=== PATIENT | female | born 2005 | race Two or more races ===

== ENCOUNTER 2024-09-11 20:08 | Observation (INO) | payer MEDICAID, SELFPAY ==
[2024-09-11] VITALS (18 sets, daily range): BP systolic 106–132; BP diastolic 51–67; PULSE 70–129; RESP 18–99; TEMP 37; O2SAT 98–100; BMI 45.7
[2024-09-11 21:04] LABS: ROM Kit Lot # 578010271; ROM Swab Mixed By: CARMP2; Rupture of Fetal Membranes Negative (Negative); Swb Mxed in Solvent 1 min? Yes
[2024-09-11 21:56] LABS: Collection Type, Urine Clean Catch
[2024-09-11 21:59] LABS: Bilirubin,Urine Negative (Negative); Blood,Urine Negative (Negative); Clarity,Urine Clear (Clear/Hazy); Color,Urine Lt-Yellow (Lt Yel-Yel); Glucose, Urine Negative (Negative); Ketones,Urine Negative (Negative); Leukocyte Esterase,Urine Positive (Negative); Nitrite,Urine Negative (Negative); Protein,Urine Negative (Neg - Trace); RBC,Urine 2 /hpf (0-3); Squamous Epithelial Cell,Urine 5 /hpf (0-5); Urobilinogen,Urine Negative mg/dL (0.0-1.0); WBC,Urine 7 /hpf (0-5)
[2024-09-11 22:15] LABS: Alanine Aminotransferase 15 U/L (10-49); Albumin, Serum 3.6 gm/dL (3.5-5.0); Albumin/Globulin Ratio 1.5 (1.2-2.2); Alkaline Phosphatase 79 U/L (46-116); Anion Gap 9 (7-16); Aspartate Amino Transferase 29 U/L (0-34); BUN/Creatinine Ratio 15 Ratio (12-20); Bilirubin,Total 0.2 mg/dL (0.3-1.2); Blood Urea Nitrogen 9 mg/dL (9-23); Calcium 9.3 mg/dL (8.3-10.6); Calcium (Corrected) 9.6 mg/dL (8.5-10.1); Carbon Dioxide 24.3 mMol/L (20.0-31.0); Chloride 106 mMol/L (98-107); Creatinine (Component) 0.6 mg/dL (0.6-1.3); Estimated Creatinine Clearance 184.8 mL/min (>60); Globulin 2.4 gm/dL (2.3-3.5); Glucose 80 mg/dL (74-106); Osmolality,Calculated 275 (275-295); Potassium 4.5 mMol/L (3.4-5.1); Sodium 139 mMol/L (136-145); eGFR > 60 See Note
--- NOTE | 2024-09-11 22:54 | XR_ITS ---
Examination: Biophysical profile, ultrasound Date and time of exam: September 12, 2024 0027 hours INDICATIONS: Vaginal bleeding beginning 2 weeks ago, history left ovarian carcinoma Technique: Multiple transabdominal sonographic images of the pelvis abdomen obtained. Attention is directed to the breathing movement, gross body movement, amniotic fluid volume and tone. Findings: Amniotic fluid index 15.1 cm Total biophysical profile is 8 of 8. breathing movement is 2. Gross body movement is 2. tone is 2. Qualitative amniotic fluid volume is 2 Impression: Biophysical profile is 8 of 8.
--- NOTE | 2024-09-11 22:58 | XR_ITS ---
Examination: Complete OB ultrasound greater than 14 weeks Date and time of exam: September 11, 2024 11:56 PM INDICATIONS: Onset pelvic pain today Findings: Viable intrauterine single fetus with single amniotic sac presentation cephalic Cardiac motion 155 BPM Placenta anterior grade 1 Umbilical cord insertion seen Amniotic fluid index 15.6 cm Right ovary 3.5 cm arterial flow Absent left ovary. Composite estimated gestational age based on BPD, head circumference, abdominal circumference, femur length is 37 weeks 3 days Estimated weight 3151 g. Survey of intracranial anatomy, spinal anatomy, abdominal anatomy, four-chamber heart performed with no abnormalities identified. Impression: Viable intrauterine gestation cephalic presentation.
[2024-09-11 23:28] LABS: Basophils % (Auto) 0 % (0-2.5); Eosinophils # (Auto) 0.1 Thou/mm3 (0.0-0.5); Eosinophils % (Auto) 1 % (0-10); Hematocrit 32.9 % (36.0-46.0); Hemoglobin 11.6 g/dL (12.0-16.0); Immature Granulocytes % (Auto) 1 % (0-0); Lymphocytes # (Auto) 1.4 Thou/mm3 (1.0-4.8); Lymphocytes % (Auto) 17 % (10-50); Mean Corpuscular HGB Conc 35.3 g/dl (31.0-37.0); Mean Corpuscular Hemoglobin 31.6 pg (25.0-35.0); Mean Corpuscular Volume 90 fL (80-100); Monocytes # (Auto) 0.8 Thou/mm3 (0.0-0.8); Monocytes % (Auto) 10 % (0-12); Neutrophils % (Auto) 71 % (37-80); Nucleated Red Blood Cell % 0 /100 WBC (0); Platelet Count 197 Thou/mm3 (140-440); RDW Standard Deviation 43.7 fL (36.4-46.3); Red Blood Count 3.67 Miln/mm3 (4.00-5.20); White Blood Count 8.5 Thou/mm3 (4.5-11.0)
[2024-09-12] VITALS (13 sets, daily range): BP systolic 103–148; BP diastolic 54–86; PULSE 67–91; RESP 16–18; TEMP 36.6–36.9
[2024-09-12] MEDS: ceFAZolin/D5W 2 GM IV 2 GM/100 ML BAG IV (00:10)
--- NOTE | 2024-09-12 00:22 | PD.LDHP ---
Documentation for date of: 09/12/24 OB Labor/Induct. HPI History of Present Illness History of present illness: 19-year-old 2 para 0-0-1-0 at 36 weeks and 2 days is admitted for overnight observation. Patient presented to the ER with concerns of burning urination, lower abdominal pain, back pain and leaking with spotting. Patient states her symptoms has been there for 2 to 3 days. Pain is mostly in the lower back near her hip joint also radiates to the left thigh. History of Present Dating criteria: LMP confirmed by 1st trimester US Adequate Care: Yes Meds Home Medications and Allergies Home Medications ?Medication ?Instructions ?Recorded ?Confirmed ?Type vits no.130-ferrous fum 1 tab PO QDAY 09/11/24 09/11/24 History 27 mg iron-folic acid 800 mcg tablet ( Vitamin) Allergies Allergy/AdvReac Type Severity Reaction Status Date / Time NKA* Allergy Uncoded 09/11/24 23:11 OB Exam Physical Exam Vital signs: Temp Pulse Resp BP Pulse Ox 98.6 F 72 18 106/59 L 99 09/11/24 22:10 09/11/24 21:59 09/11/24 20:27 09/11/24 21:59 09/11/24 22:08 Constitutional Constitutional: no acute distress Routine HEENT Exam Head: Present normocephalic and atraumatic Eye: Present EOMI and PERRL ENT: Present mucous membranes moist Routine Neck Exam Neck: Present supple and trachea midline Routine Cardiovascular Exam Cardiovascular: Present RRR Routine Abdominal Exam Abdominal: Present soft and normoactive bowel sounds Routine Exam Comments: Negative CVA tenderness Detailed Labor and Delivery Exam Comments: Cervix is 1 thick high Isolated occasional prolonged deceleration 3 minutes seen resolved on position change Routine Extremities Exam Extremities: Present full ROM Routine Skin Exam Skin: Present intact, dry and warm Routine Neurological Exam Neurological: Present alert, oriented X3 and CN II-XII intact Routine Psychiatric Exam Psychiatric: Present normal affect and normal thought process OB Results Labs 09/11/24 22:09 09/11/24 21:25 Labs: Short CBC 09/11/24 Range/Units 22:09 WBC 8.5 (4.5-11.0) Thou/mm3 Hgb 11.6 L (12.0-16.0) g/dL Hct 32.9 L (36.0-46.0) % Plt Count 197 (140-440) Thou/mm3 BMP 09/11/24 21:25 Sodium 139 Potassium 4.5 Chloride 106 Carbon Dioxide 24.3 BUN 9 Creatinine 0.6 Glucose 80 Calcium 9.3 Liver Function 09/11/24 Range/Units 21:25 Total Bilirubin 0.2 L (0.3-1.2) mg/dL AST 29 (0-34) U/L ALT 15 (10-49) U/L Alkaline Phosphatase 79 (46-116) U/L Albumin 3.6 (3.5-5.0) gm/dL Urine 09/11/24 Range/Units 21:00 Urine Color Lt-Yellow (Lt Yel-Yel) Urine Clarity Clear (Clear/Hazy) Urine pH 6.0 (5.0-7.0) Ur Specific [place] 1.020 (1.001-1.035) Urine Protein Negative (Neg - Trace) Urine Glucose (UA) Negative (Negative) Impressions Impression: 19-year-old 2 para 0-0-1-0 at 36 weeks and 2 days admitted for observation secondary to category 2 heart tone. On arrival in the triage patient had a prolonged deceleration of 3 minutes Possible UTI: Urine analysis within normal limits WBC normal Ultrasound pending Not in labor CVA tenderness negative Appears musculoskeletal origin of back pain OB Assessment & Plan Additional Plan Additional Plan Comment: Will be admitted for overnight observation with continuous heart tone monitoring Ultrasound complete OB along with BPP 1 dose of antibiotic given pending urine culture
[2024-09-12] MEDS: BETAMET ACET/BETAMET NA PH (Celestone) 6 MG/ML VIAL 12 MG IM (00:45)
--- NOTE | 2024-09-12 02:39 | PRELIM_ITS ---
Obstetric ultrasound with doppler and wave doppler spectral analysis. September 11, 2024 2356 hours Clinical history: Category II tracing. Comparison: None available at the time of this report. Findings: There is a gravid uterus with a live fetus in cephalic presentation of mean gestational age 37 weeks and 3 days (by biometry). cardiac activity is present at a heart rate of 155 beats per minute. The placenta is anterior in location, maturity grade 1. There is no evidence of placenta previa or retroplacental hemorrhage. Amniotic fluid is adequate (TATIANA = 15.6 cm). Estimated weight is 3151 grams+/- 466 grams. The right ovary measures 3.2 x 2.4 x 3.5 cm. Normal blood flow in the right ovary with normal wave Doppler spectral analysis. S/p left oophorectomy. The cervix is not clearly visualized. Impression: Gravid uterus with a single live fetus in cephalic presentation of mean gestational age 37 weeks and 3 days. Report Electronically Signed By: Aric Sherwood 09/12/2024 2:38:58 AM [EST]
--- NOTE | 2024-09-12 02:40 | PRELIM_ITS ---
Obstetric ultrasound (limited) with Doppler. September 12, 2024 0027 hours Clinical history: Category II tracing. Comparison: None available at the time of this report. Findings: There is a gravid uterus with a live fetus. cardiac activity is present at a heart rate of 152 beats per minute. There is no evidence of placenta previa or retroplacental hemorrhage. Amniotic fluid is adequate (TATIANA = 15.1 cm). No abnormalities by Doppler. Biophysical Profile: Breathing : 2 Tone : 2 Amniotic fluid : 2 Movement : 2 BPP Score : 8/8 Impression: Gravid uterus with a single live fetus. Normal biophysical profile as recorded by the apparatus engineering technologist. Report Electronically Signed By: Aric Sherwood 09/12/2024 2:39:13 AM [EST]
--- NOTE | 2024-09-12 20:03 | PD.LDDS ---
DS: Providers Provider Date of admission: 09/11/24 20:08 Primary care physician: Physician No Primary/Family Admitting Provider: Messi Ceballos MD Attending Provider on Admission: Messi Ceballos MD Attending Provider on DC: [facility] ([facility]) Discharging Provider: Sheela Garcia MD ([facility]) Anticipated date of discharge: 09/12/24 DS: Diagnosis Discharge Diagnosis (1) 36 weeks gestation of : Status: Acute Assessment & Plan: Patient was given 1 dose of betamethasone on admission. No need for second dose as she is over 36 weeks in does not appear to be in labor. (2) Pelvic pain: Status: Acute Assessment & Plan: No signs of ongoing labor. No signs of kidney and kidney or pelvic infection. No signs of rupture membranes. After observation, a normal evaluation and normal lab work, we will send home in stable condition. Patient with a reactive NST, and normal BPP and an ultrasound revealing a vertex presentation baby measuring a week of head and a TATIANA of over 15 Problem List Completed Was Problem List Reviewed/Reconciled?: Yes Summary/Hosp Course Brief History: 19-year-old 2 para 0-0-1-0 at 36 weeks and 2 days is admitted for overnight observation. Patient presented to the ER with concerns of burning urination, lower abdominal pain, back pain and leaking with spotting. Patient states her symptoms has been there for 2 to 3 days. Pain is mostly in the lower back near her hip joint also radiates to the left thigh. Status at Discharge Cognitive/behavioral status at discharge: Patient is alert and oriented x 3 she feels better and wants to go home. Functional status at discharge: independent ambulation Overall status at discharge: patient is back to baseline Time Spent with Patient Time attestation: Total time spent providing and/or coordinating discharge services: Time spent: Less than 30 minutes Specific discharge activities: Take warm baths. Heating pad on your back for pelvic pain. Tylenol is okay. Explained that the next 4 weeks are likely going to entail some cramping pain urinary frequency and pressure. This is all a normal process as patient progresses through the last 4 weeks of . She is to come in for heavy vaginal, bleeding loss of fluids, decreased movement or painful regular uterine contractions. She is to follow-up with her CNM in 1 week. Exam Vital Signs Temp Pulse Resp BP Pulse Ox 97.8 F 75 18 118/69 99 09/12/24 07:21 09/12/24 07:20 09/12/24 07:21 09/12/24 07:20 09/11/24 22:08 Discharge Plan Plan Patient Disposition: HOME (Self Care) Disposition Comment: Stable Prescriptions/Referrals Prescriptions/Med Rec: No Action Vitamin 27 mg iron- 800 mcg tablet 1 tab PO QDAY Referrals: No Primary/Family,Physician [Primary Care Provider] - Patient/Caregiver Discharge Instructions Discharge Activity: activity as tolerated Other Discharge Activity Instructions:: follow up with CNM at clinic. Other Discharge Diet Instructions: General diet Education Materials: Kick Counts, Understanding Labor, Antepartum Discharge Print Language: Kiswahili Stand Alone Forms: Sobeida Award Info., Patient Portal Info Letter, Work/Release Restrictions Discharge Order Discharge Orders: Discharge (Routine); Ordered 09/12/24 Ordered By: Sheela Garcia ([facility]) Planned Discharge Date 09/12/24
== END 2024-09-12 08:00 | disposition home or self-care (01) ==
PROVIDERS: Admitting Provider Student in an Organized Health Care Education/Training Program; Visit Provider Student in an Organized Health Care Education/Training Program
DX: O26.893 Other specified pregnancy related conditions, third trimester (principal); R10.2 Pelvic and perineal pain; Z3A.37 37 weeks gestation of pregnancy; M54.50 Low back pain, unspecified
CPT/HCPCS: 36415; 59025; 59899; 76805; 76819; 80053; 81001; 84112; 85025; 87086; 96372; G0378; J0689; J0702

== ENCOUNTER 2024-09-17 17:41 | Outpatient (CLI) | payer BC, MEDICAID, SELFPAY ==
[2024-09-17] VITALS (22 sets, daily range): BP systolic 126–137; BP diastolic 70–78; PULSE 78–109; RESP 18–98; TEMP 36.7; O2SAT 93–100; BMI 45.8
--- NOTE | 2024-09-17 18:20 | XR_ITS ---
Examination: Biophysical profile, ultrasound Date and time of exam: September 17, 2024 1831 hours INDICATIONS: Diagnosis maternal obesity, vaginal bleeding and discharge beginning 2 days ago Technique: Multiple transabdominal sonographic images of the pelvis abdomen obtained. Attention is directed to the breathing movement, gross body movement, amniotic fluid volume and tone. Findings: Amniotic fluid index 11.7 cm Total biophysical profile is 8 of 8. breathing movement is 2. Gross body movement is 2. tone is 2. Qualitative amniotic fluid volume is 2 Impression: Biophysical profile is 8 of 8.
== END 2024-09-17 19:51 | disposition home or self-care (01) ==
LOC: S4SX 19:43 → S4S1 09-18 06:05 → S4SX 09-18 06:05
PROVIDERS: Referring Provider Obstetrics & Gynecology; Visit Provider Obstetrics & Gynecology
DX: Z34.83 Encounter for supervision of other normal pregnancy, third trimester (principal); Z36.9 Encounter for antenatal screening, unspecified; Z3A.37 37 weeks gestation of pregnancy
CPT/HCPCS: 59025; 76819

== ENCOUNTER 2024-09-26 15:18 | Observation (INO) | payer BC, MEDICAID, SELFPAY ==
[2024-09-26 15:26] VITALS: BP 128/76; PULSE 108
[2024-09-26 15:36] VITALS: BP 128/76; PULSE 108; RESP 16; RESP 97; TEMP 36.7
[2024-09-26 15:37] VITALS: RESP 16; TEMP 36.7; O2SAT 97; BMI 46.7
[2024-09-26 16:11] LABS: ROM Kit Lot # 57807112; ROM Swab Mixed By: HILEL; Rupture of Fetal Membranes Negative (Negative); Swb Mxed in Solvent 1 min? Yes
== END 2024-09-26 16:30 | disposition home or self-care (01) ==
PROVIDERS: Admitting Provider Obstetrics & Gynecology; Visit Provider Obstetrics & Gynecology
DX: Z34.83 Encounter for supervision of other normal pregnancy, third trimester (principal); Z3A.38 38 weeks gestation of pregnancy
CPT/HCPCS: 59899; 84112

== ENCOUNTER 2024-09-28 05:22 | Inpatient (IN) | payer BC, MEDICAID, SELFPAY ==
[2024-09-28] VITALS (251 sets, daily range): BP systolic 0–167; BP diastolic 0–95; PULSE 68–127; RESP 16–98; TEMP 36.5–37.2; O2SAT 70–100; BMI 47.1
[2024-09-28 05:55] LABS: ROM Kit Lot # 57807112; ROM Swab Mixed By: KE; Rupture of Fetal Membranes Positive (Negative); Swb Mxed in Solvent 1 min? Yes
[2024-09-28] MEDS: RINGERS LACTATED 1000 ML 1,000 ML 100 ML IV (06:20)
[2024-09-28 06:39] LABS: Basophils % (Auto) 0 % (0-2.5); Eosinophils # (Auto) 0.1 Thou/mm3 (0.0-0.5); Eosinophils % (Auto) 2 % (0-10); Hematocrit 33.7 % (36.0-46.0); Hemoglobin 11.9 g/dL (12.0-16.0); Immature Granulocytes % (Auto) 1 % (0-0); Immature Granulocytes Auto 0.08 Thou/mm3 (0.00-0.00); Lymphocytes # (Auto) 1.5 Thou/mm3 (1.0-4.8); Lymphocytes % (Auto) 17 % (10-50); Mean Corpuscular HGB Conc 35.3 g/dl (31.0-37.0); Mean Corpuscular Hemoglobin 31.8 pg (25.0-35.0); Mean Corpuscular Volume 90 fL (80-100); Monocytes # (Auto) 0.8 Thou/mm3 (0.0-0.8); Monocytes % (Auto) 9 % (0-12); Neutrophils # (Auto) 6.3 Thou/mm3 (1.8-7.7); Neutrophils % (Auto) 71 % (37-80); Nucleated Red Blood Cell % 0 /100 WBC (0); Platelet Count 195 Thou/mm3 (140-440); RDW Standard Deviation 44.1 fL (36.4-46.3); Red Blood Count 3.74 Miln/mm3 (4.00-5.20); White Blood Count 8.9 Thou/mm3 (4.5-11.0)
[2024-09-28 07:15] LABS: Syphilis Nonreactive (Nonreactive)
--- NOTE | 2024-09-28 07:45 | ESHP_ITS ---
Documentation for date of: 09/28/24 OB Labor/Induct. HPI History of Present Illness Chief complaint: Ruptured membranes at 520 in the morning : 2 Term pregnancies: 0 Living children: 0 History of Abortions: Spontaneous and Elective: 1 History of Vaginal deliveries: 0 History of sections: No History of : No Date of last menstrual period: 12/09/23 JANIE: 10/08/24 Gestational Age (weeks): 38 Gestational Age (days): 4 Gestational age based on last menstrual period: 42 History of present illness: The patient is a 19-year-old -0-1-0 who presented with ruptured membranes at 5:20 in the morning. The patient was 2 cm dilated on presentation. She is 38-4/7 weeks . She was a scheduled induction for elevated maternal BMI close to her due date. Her care is up-to-date and on the chart with [facility]. Group B strep is negative. The patient desires to try to labor naturally. The father the baby is at the bedside and plans on going home and bringing back a labor ball for the patient. History of Present Dating criteria: LMP confirmed by 1st trimester US Adequate Care: Yes Ultrasounds: normal mid trimester US Medical complications: other (Maternal BMI of 47) Labs Maternal Blood Type: O Pos Labs: Positive: Rubella Titre and Negative: RPR, Hepatitis B, HIV, Chlamydia, Gonorrhea and Group Beta Strep Review of Systems Review of Systems Systems Reviewed: All systems reviewed, normal except as documented Narrative Review of Systems: The patient reports ruptured membranes. Clear fluid. No meconium. The patient is breathing through contractions and reports good movement. 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 She did have a blood transfusion during the surgery. Social History SOCIAL: The father of the baby is at bedside. Past Medical History Comments PMH COMMENT: Patient has a history of anxiety Meds Home Medications and Allergies Home Medications ?Medication ?Instructions ?Recorded ?Confirmed ?Type vits no.130-ferrous fum 1 tab PO QDAY 09/11/2 5 09/28/24 History 27 mg iron-folic acid 800 mcg tablet ( Vitamin) acetaminophen 500 mg tablet 1,000 mg PO [id number] PRN pa in 09/28/24 09/28/24 History Allergies Allergy/AdvReac Type Severity Reaction Status Date / Time NKA* Allergy Uncoded 09/28/24 06:34 OB Exam Physical Exam Vital signs: Temp Pulse Resp BP Pulse Ox 97.7 F 98 18 128/77 98 09/28/24 05:36 09/28/24 05:32 09/28/24 05:26 09/28/24 05:32 09/28/24 06:03 Routine Abdominal Exam Abdominal: Present soft Comments: Obese. Fundal height of approximately 40. Detailed Labor and Delivery Exam Effacement (%): 50 Cervix position: mid station: -2 Consistency: medium Presentation: Vertex Membranes: ruptured Amniotic fluid: clear monitor accelerations: 15x15 monitor decelerations: None exterminator helper variability: Moderate (11-25) Contraction frequency (min): Irregular Tachysystole: No OB Results Labs 09/28/24 06:15 Labs: Short CBC 09/28/24 Range/Units 06:15 WBC 8.9 (4.5-11.0) Thou/mm3 Hgb 11.9 L (12.0-16.0) g/dL Hct 33.7 L (36.0-46.0) % Plt Count 195 (140-440) Thou/mm3 OB Assessment & Plan Assessment and Plan (1) Active labor at term: Status: Acute Assessment and plan: Admit patient. Pain options discussed including epidural and IV fentanyl. (2) Morbid obesity with BMI of 45.0-49.9, adult: Status: Acute Assessment and plan: Shoulder precautions. EFW based on ultrasound 09/11 was 7 pounds. So anticipate an 8 pound baby. Additional Plan Induction method: none Plan: anticipate NVD Additional Plan Comment: Consider Pitocin augmentation if patient not progressing.
--- NOTE | 2024-09-28 08:45 | PD.LDPN ---
Documentation for date of: 09/28/24 OB Labor Progress Note Pain Control Comments: Patient passed out on the restroom toilet and a rapid response was called at 840 in the morning. Before I could come to bedside and assess the patient. Pelvic Exam Effacement (%): 50 station: -2 Contractions Contraction frequency: Irregular Status status: Category ll
--- NOTE | 2024-09-28 14:59 | PD.LDPN ---
Documentation for date of: 09/28/24 OB Labor Progress Note Pain Control Pain control: epidural Pelvic Exam Dilation (cm): 5 Effacement (%): 80 station: -2 Amniotic membrane status: Ruptured Contractions Monitor mode: Internal Contraction frequency: evry 4 Contraction duration: 30 Intrauterine tone measurement: 110 Status status: Category l Assessment and Plan Assessment: active labor Plan OB labor note: begin Pitocin augmentation Comments: IUPC in place. Contractions are not adequate for cervical change. Start Pitocin at this time.
[2024-09-28] MEDS: ONDANSETRON INJ 2 MG/ML INJ 2 ML 4 MG IV (17:36)
[2024-09-28] MEDS: MINERAL OIL 30 ML UDC TOP (20:50)
[2024-09-28] MEDS: OXYTOCIN in NS 20 units 20 UNIT/1,000 ML BAG 125 UNIT IV (21:06)
--- NOTE | 2024-09-28 21:23 | PD.LDDELS ---
Data ([facility]) Data Hx Section: No Maternal Blood Type: O Pos Rubella Titre: Positive RPR: Non-reactive Labs: Negative: RPR, Hepatitis B, HIV, Chlamydia, Gonorrhea and Group Beta Strep : 2 Term: 0 : 0 : 1 Delivery Data ([facility]) Labor Data Stimulated/Augmented: No Induction: No ROM Date: 09/28/24 ROM Time: 04:20 Rupture Type: SROM Amniotic Fluid: Clear Delivery Data EDC: 10/08/24 EDC calculated by:: LMP/early US confirmation Delivery Date: 09/28/24 Delivery Time: 21:02 Gestational age (weeks): 38 Gestational age (days): 4 Placenta Delivery Date: 09/28/24 Placenta Delivery Time: 21:04 Delivered by: Sheela Garcia ([facility]) Automotive Services Manager at delivery: No Support person(s) at delivery: FOB, pt mother Delivery Method Delivery: Vaginal Delivery Type: Spontaneous Presentation: Vertex Position: OA Anesthesia Type Primary Anesthesia: Epidural Secondary Anesthesia: None Delivery Room Medications Other Intrapartum Medications: No Post Delivery Medications N/A: No Placenta Placenta Delivery: Spontaneous Placenta Cultures Obtained: No Placenta Sent for Examination: No Cord Sample: Cord Blood Obtained Episiotomy Episiotomy: None Lacerations #1: Perineal: 1st degree Perineal repair Sutures used for repair: 4.0 Chromic EBL Estimated blood loss (ml): 100 Umbilical Cord Placenta/Cord Complication: Other (Short cord) Umbilical Vessels: 3 Nuchal Cord: None Body Cord: None Additional Procedures Patient progressed to complete without the aid of Pitocin and labored down about an hour. She then began pushing about 8:00 PM and pushed approximately 1 hour delivering a liveborn male at 9:02 pm. Findings liveborn male in the ROSALIND presentation with no nuchal cord and no meconium. Apgars were 9 and 9. Weight was 7 pounds 3 ounces. The placenta was complete spontaneous grossly normal delivering approximately 4 minutes after the baby delivered. The patient sustained a first-degree perineal laceration repaired using 4-0 chromic. The patient had an epidural. EBL was 100 cc. Complications were none. Condition both mom and infant were in stable condition in the delivery room. Complications Complications: none Data ([facility]) Data [place]'s name: Tip order: 1 Infant Gender: Male weight (lbs): 3260.195 g
--- NOTE | 2024-09-28 21:30 | PD.LDDELS ---
Data ([facility]) Data Hx Section: No Maternal Blood Type: O Pos Rubella Titre: Positive RPR: Non-reactive Labs: Negative: RPR, Hepatitis B, HIV, Chlamydia, Gonorrhea and Group Beta Strep : 2 Term: 0 : 0 : 1 Delivery Data ([facility]) Labor Data Stimulated/Augmented: No Induction: No ROM Date: 09/28/24 ROM Time: 04:20 Rupture Type: SROM Amniotic Fluid: Clear Delivery Data Delivery Date: 09/28/24 Delivered by: Sheela [facility] ([facility]) Field Marketing Manager at delivery: No Support person(s) at delivery: FOB, pt mother Delivery Method Delivery: Vaginal Delivery Type: Spontaneous Presentation: Vertex Position: OA Anesthesia Type Primary Anesthesia: Epidural Secondary Anesthesia: None Delivery Room Medications Other Intrapartum Medications: No Placenta Placenta Delivery: Spontaneous Placenta Cultures Obtained: No Placenta Sent for Examination: No
[2024-09-28] MEDS: IBUPROFEN TAB 400 MG TABLET 800 MG PO (22:00)
[2024-09-28] MEDS: BENZO/LANO/ALOE (Dermoplast) 60 GM CAN 1 SPRAY TOP (22:04)
[2024-09-29] MEDS: IBUPROFEN TAB 400 MG TABLET 800 MG PO ×3 (01:36→20:08)
[2024-09-29 03:30] VITALS: BP 102/68; PULSE 104; RESP 20; TEMP 36.4; O2SAT 97
[2024-09-29 05:26] LABS: Basophils % (Auto) 0 % (0-2.5); Eosinophils % (Auto) 0 % (0-10); Hematocrit 30.2 % (36.0-46.0); Hemoglobin 10.3 g/dL (12.0-16.0); Immature Granulocytes % (Auto) 1 % (0-0); Lymphocytes # (Auto) 1.3 Thou/mm3 (1.0-4.8); Lymphocytes % (Auto) 7 % (10-50); Mean Corpuscular HGB Conc 34.1 g/dl (31.0-37.0); Mean Corpuscular Hemoglobin 31.3 pg (25.0-35.0); Mean Corpuscular Volume 92 fL (80-100); Monocytes # (Auto) 1.1 Thou/mm3 (0.0-0.8); Monocytes % (Auto) 6 % (0-12); Neutrophils # (Auto) 14.7 Thou/mm3 (1.8-7.7); Neutrophils % (Auto) 86 % (37-80); Nucleated Red Blood Cell % 0 /100 WBC (0); Platelet Count 182 Thou/mm3 (140-440); RDW Standard Deviation 45.9 fL (36.4-46.3); Red Blood Count 3.29 Miln/mm3 (4.00-5.20); White Blood Count 17.1 Thou/mm3 (4.5-11.0)
--- NOTE | 2024-09-29 07:18 | PD.LDPPPRG ---
Subjective Subjective Interval history: Patient denies any problem or complaint Exam Vital Signs Temp Pulse Resp BP Pulse Ox O2 Del Method 97.5 F 104 H 20 102/68 97 Room Air 09/29/24 03:30 09/29/24 03:30 09/29/24 03:30 09/29/24 03:30 09/29/24 03:30 09/29/24 03:30 Routine Respiratory Exam Comments: Regular rate and rhythm Routine Cardiovascular Exam Comments: Clear to auscultation bilaterally Routine Abdominal Exam Comments: Fundus is firm nontender Routine Extremities Exam Comments: Nontender or edema Objective Labs 09/29/24 05:00 Labs: Laboratory Results - last 24 hr 09/28/24 09/29/24 06:15 05:00 WBC 17.1 H D RBC 3.29 L Hgb 10.3 L Hct 30.2 L MCV 92 MCH 31.3 MCHC 34.1 RDW Std Deviation 45.9 Plt Count 182 Neut % (Auto) 86 H Lymph % (Auto) 7 L [place] % (Auto) 6 Eos % (Auto) 0 Baso % (Auto) 0 Neut # (Auto) 14.7 H Lymph # (Auto) 1.3 [place] # (Auto) 1.1 H Eos # (Auto) 0.0 Baso # (Auto) 0.0 Immature Gran # (Auto) 0.10 H Absolute Nucleated RBC 0.00 Immature Gran % 1 H Nucleated RBC % 0 Blood Type O Positive Antibody Screen NEGATIVE Blood Bank Wristband ID Yes Assessment & Plan Problem List (1) Active labor at term: Status: Acute (2) Morbid obesity with BMI of 45.0-49.9, adult: Status: Acute Assessment and plan: day #1 status post continuous vaginal delivery Discharge home Discharge instructions given follow-up in the office in 6 weeks Time Spent With Patient Time: Total time spent is greater than 50% in coordination of care (as documented) at patient's floor/unit and/or counseling patient:
--- NOTE | 2024-09-29 07:19 | PD.LDDS ---
DS: Providers Provider Date of admission: 09/28/24 06:27 Primary care physician: Favian Myers MD Admitting Provider: Sheela Garcia MD ([facility]) Attending Provider on Admission: Sheela Garcia MD ([facility]) Consults: 09/29/24 00:24 Referral Routine Comment: Attending Provider on DC: Aaron Mckee MD Discharging Provider: Aaron Mckee MD DS: Diagnosis Problem List Completed Was Problem List Reviewed/Reconciled?: Yes Summary/Hosp Course Brief History: The patient is a 19-year-old -0-1-0 who presented with ruptured membranes at 5:20 in the morning. The patient was 2 cm dilated on presentation. She is 38-4/7 weeks . She was a scheduled induction for elevated maternal BMI close to her due date. Her care is up-to-date and on the chart with [facility]. Group B strep is negative. The patient desires to try to labor naturally. The father the baby is at the bedside and plans on going home and bringing back a labor ball for the patient. Time Spent with Patient Time attestation: Total time spent providing and/or coordinating discharge services: Exam Vital Signs Temp Pulse Resp BP Pulse Ox O2 Del Method 97.5 F 104 H 20 102/68 97 Room Air 09/29/24 03:30 09/29/24 03:30 09/29/24 03:30 09/29/24 03:30 09/29/24 03:30 09/29/24 03:30 Discharge Plan Plan Patient Disposition: HOME (Self Care) Patient condition on transfer: Stable Prescriptions/Referrals Prescriptions/Med Rec: New ibuprofen 600 mg tablet 600 mg PO Q6H PRN (Reason: pain) Qty: 30 0RF Continued Vitamin 27 mg iron- 800 mcg tablet 1 tab PO QDAY Discontinued acetaminophen 500 mg tablet 1,000 mg PO [id number] PRN (Reason: pain) Patient Comments: TAKE 1 TABLET BY MOUTH EVERY 6 HOURS NEEDED FOR PAIN Referrals: Favian Myers MD [Primary Care Provider] - Patient/Caregiver Discharge Instructions Discharge Activity: activity as tolerated Other Discharge Activity Instructions:: Follow up office 6 weeks Print Language: Zimbabwean Stand Alone Forms: Sobeida Award Info., Patient Portal Info Letter Discharge Order Discharge Orders: Discharge (Routine); Ordered 09/29/24 Ordered By: Aaron Mckee Planned Discharge Date 09/29/24
[2024-09-29 08:50] VITALS: BP 110/77; PULSE 94; RESP 16; TEMP 36.8; O2SAT 98
[2024-09-29] MEDS: HYDROcodone/APAP 5/325 TABLET 1 TAB PO (09:02)
[2024-09-29 12:50] VITALS: BP 112/74; PULSE 87; RESP 15; TEMP 36.4
[2024-09-29 15:20] VITALS: BP 115/80; PULSE 97; RESP 16; TEMP 36.7; O2SAT 97
[2024-09-29 19:15] VITALS: BP 101/77; PULSE 95; RESP 16; TEMP 36.7; O2SAT 98
[2024-09-29] MEDS: BENZO/LANO/ALOE (Dermoplast) 60 GM CAN 1 SPRAY TOP (21:53)
[2024-09-29] MEDS: Milk Of Magnesia Susp 30 ML UDC PO (21:54)
[2024-09-30] MEDS: HYDROcodone/APAP 5/325 TABLET 1 TAB PO (01:41)
[2024-09-30 03:10] VITALS: BP 115/74; PULSE 96; RESP 18; TEMP 36.7; O2SAT 98
--- NOTE | 2024-09-30 08:04 | PD.LDDS ---
DS: Providers Provider Date of admission: 09/28/24 06:27 Primary care physician: Favian Myers MD Admitting Provider: Sheela [facility] ([facility] Attending Provider on Admission: Sheela Garcia MD ([facility]) Consults: 09/29/24 00:24 Referral Routine Comment: Attending Provider on DC: Marta Valentin CNM Discharging Provider: Marta Valentin CNM Anticipated date of discharge: 09/30/24 DS: Diagnosis Discharge Diagnosis (1) Normal spontaneous vaginal delivery: Status: Acute (2) Encounter for care of lactating mother: Status: Acute Problem List Completed Was Problem List Reviewed/Reconciled?: Yes Summary/Hosp Course Brief History: The patient is a 19-year-old -0-1-0 who presented with ruptured membranes at 5:20 in the morning. The patient was 2 cm dilated on presentation. She is 38-4/7 weeks . She was a scheduled induction for elevated maternal BMI close to her due date. Her care is up-to-date and on the chart with [facility]. Group B strep is negative. The patient desires to try to labor naturally. The father the baby is at the bedside and plans on going home and bringing back a labor ball for the patient. Peripartum Data Delivery Method: Normal Vaginal Delivery Episiotomy Description: None Laceration Description: yes and see Delivery Summary complications: none [place] 1: Gender: Male Disposition of : home Status at Discharge Cognitive/behavioral status at discharge: Alert and oriented x 3 Functional status at discharge: independent ambulation Overall status at discharge: patient is progressing back to baseline Time Spent with Patient Time attestation: Total time spent providing and/or coordinating discharge services: Time spent: Greater than 30 minutes Exam Vital Signs Temp Pulse Resp BP Pulse Ox O2 Del Method 98.0 F 96 18 115/74 98 Room Air 09/30/24 03:10 09/30/24 03:10 09/30/24 03:10 09/30/24 03:10 09/30/24 03:10 09/30/24 03:10 Constitutional Constitutional: no acute distress Routine HEENT Exam Head: Present normocephalic and atraumatic Eye: Present EOMI, PERRL and normal accommodation ENT: Present mucous membranes moist Routine Neck Exam Neck: Present supple, full ROM and trachea midline Routine Respiratory Exam Respiratory: Present chest non-tender, lungs clear, normal breath sounds and no resp distress Routine Cardiovascular Exam Cardiovascular: Present RRR Routine Abdominal Exam Abdominal: Present soft and normoactive bowel sounds Comments: Uterus nontender fundus firm Routine Exam Patient deferred: external exam Routine Extremities Exam Extremities: Present full ROM, pulses intact and normal capillary refill; Absent calf tenderness or tenderness Routine Back/Spine/Pelvis Exam Back/Spine: Present full ROM Routine Skin Exam Skin: Present intact, dry and warm Routine Neurological Exam Neurological: Present alert, oriented X3 and CN II-XII intact Routine Psychiatric Exam Psychiatric: Present normal affect and normal thought process Discharge Plan Plan Patient Disposition: HOME (Self Care) Patient condition on transfer: Stable Prescriptions/Referrals Prescriptions/Med Rec: New ibuprofen 600 mg tablet 600 mg PO Q6H PRN (Reason: pain) Qty: 30 0RF docusate sodium [Colace] 100 mg capsule 100 mg PO BID Qty: 60 0RF lanolin 50 % ointment 1 applic topical TID PRN (Reason: skin irritation) Qty: 15 0RF Continued Vitamin 27 mg iron- 800 mcg tablet 1 tab PO QDAY Discontinued acetaminophen 500 mg tablet 1,000 mg PO [id number] PRN (Reason: pain) Patient Comments: TAKE 1 TABLET BY MOUTH EVERY 6 HOURS NEEDED FOR PAIN Referrals: Favian Myers MD [Primary Care Provider] - Patient/Caregiver Discharge Instructions Meds to Beds: No Discharge Activity: activity as tolerated Other Discharge Activity Instructions:: Follow-up with Marta Valentin CNM in 3 weeks Education Materials: After a Vaginal , : Caring for Yourself Print Language: Mongolian Stand Alone Forms: [employer] Award Info., Patient Portal Info Letter Discharge Order Discharge Orders: Discharge (Routine); Ordered 09/30/24 Ordered By: Marta Valentin Planned Discharge Date 09/30/24
[2024-09-30 08:40] VITALS: BP 105/67; PULSE 92; RESP 14; TEMP 36.9; O2SAT 98
--- NOTE | 2024-09-30 12:10 | PD.LDHP ---
Documentation for date of: 09/30/24 OB Labor/Induct. HPI History of Present Illness : 2 Term pregnancies: 0 Living children: 0 History of Abortions: Spontaneous and Elective: 1 History of Vaginal deliveries: 0 History of sections: No History of : No Date of last menstrual period: 12/09/23 JANIE: 10/08/24 Gestational Age (weeks): 38 Gestational Age (days): 4 Gestational age based on last menstrual period: 42 History of present illness: The patient is a 19-year-old -0-1-0 who presented with ruptured membranes at 5:20 in the morning. The patient was 2 cm dilated on presentation. She is 38-4/7 weeks . She was a scheduled induction for elevated maternal BMI close to her due date. Her care is up-to-date and on the chart with [facility]. Group B strep is negative. The patient desires to try to labor naturally. The father the baby is at the bedside and plans on going home and bringing back a labor ball for the patient. History of Present Dating criteria: LMP confirmed by 1st trimester US Adequate Care: Yes Labs Labs: Positive: Rubella Titre and Negative: RPR, Hepatitis B, HIV, Chlamydia, Gonorrhea and Group Beta Strep Review of Systems Constitutional Constitutional: Reports excessive sweating and Reports fatigue Endocrine Endocrine: Reports excessive sweating and Reports fatigue Past Medical History Past Medical History NEUROLOGIC: Positive Neurological Disorders and Epilepsy (last seizure in 2021) CARDIAC: Positive Cardiac Disorders; Negative Atrial Fibrillation, Coronary Artery Disease, Hypercholesterolemia, Congestive Heart Failure or Congenital Heart Disease RESPIRATORY: Negative Respiratory Disorders or Chronic Obstructive Pulmonary Disease (COPD) GASTROINTESTINAL: Negative Gastrointestinal Disorders or Hepatitis GENITOURINARY: Negative Genitourinary Disorders or Renal Disease ENT: Positive History of ENT Problems (left eye deviation and blurred vision) ENDOCRINE: Negative Endocrine Disorders, Diabetes Mellitus Type 1 or Diabetes Mellitus Type 2 HEMATOLOGIC: Positive Blood Disorders and Anemia PSYCHO/SOCIAL: Positive Anxiety OTHER HISTORY: Positive Hospitalization (d/t surgery), Blood Transfusions, Anesthesia Reactions (anxiety after waking up from general) and Cancer (ovarian tumor positive for cancer-removed); Negative Autoimmune Disease, Down Syndrome, Developmental Delay, Shingles, Falls, Blood Transfusion Reaction, Organ Transplant, Chemotherapy, Radiation Therapy, Hyperbaric Therapy, MRSA, VRSA, Vancomycin-Resistant Enterococci, Human Immunodeficiency Virus (HIV), Chicken Pox, Measles, Mumps, Rubella (Bolivian Measles), Pertussis or Clostridium Difficile Family History FAMILY HISTORY: Positive Family Cardiac Disorders (grandmother- [place]), Family Cancer (mother-unspecified) and Family Surgery (father-tumor, cyst removal); Negative Family Psychiatric Problems, Family Respiratory Disorders, Family Gastrointestinal Problems, Family Genitourinary Problems, Family Endocrine Disorders, Family Reproductive Disorders, Family Musculoskeletal Disorders or Family Anesthesia Reaction Surgical History SURGICAL: Negative Section or Organ Transplant OTHER SURGICAL HX: 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 She did have a blood transfusion during the surgery. Social History SOCIAL: The father of the baby is at bedside. SMOKING STATUS: Never smoker SUBSTANCE USE: does not use Travel History EBOLA RISK: No Past Medical History Comments PMH COMMENT: Patient has a history of anxiety Meds Home Medications and Allergies Home Medications ?Medication ?Instructions ?Recorded ?Confirmed ?Type vits no.130-ferrous fum 1 tab PO QDAY 09/11/24 09/28/24 History 27 mg iron-folic acid 800 mcg tablet ( Vitamin) Allergies Allergy/AdvReac Type Severity Reaction Status Date / Time No Known Allergies Allergy Unverified 09/28/24 17:28 OB Exam Physical Exam Vital signs: Temp Pulse Resp BP Pulse Ox O2 Del Method 98.5 F 92 14 105/67 98 Room Air 09/30/24 08:40 09/30/24 08:40 09/30/24 08:40 09/30/24 08:40 09/30/24 08:40 09/30/24 08:40 OB Results Labs 09/29/24 05:00 OB Assessment & Plan Assessment and Plan (1) Normal spontaneous vaginal delivery: Status: Acute (2) Encounter for care of lactating mother: Status: Acute
[2024-09-30] MEDS: BENZO/LANO/ALOE (Dermoplast) 60 GM CAN 1 SPRAY TOP (14:10)
== END 2024-09-30 14:40 | disposition home or self-care (01) | DRG 807 ==
LOC: S4SX 06:30 → S4NX 23:21
PROVIDERS: Admitting Provider Obstetrics & Gynecology; PCP Family Medicine; Visit Provider Obstetrics & Gynecology
DX: O42.02 Full-term premature rupture of membranes, onset of labor within 24 hours of rupture (principal); Z37.0 Single live birth; O69.3XX0 Labor and delivery complicated by short cord, not applicable or unspecified; O70.0 First degree perineal laceration during delivery; E66.01 Morbid (severe) obesity due to excess calories; O99.214 Obesity complicating childbirth; Z3A.38 38 weeks gestation of pregnancy
CPT/HCPCS: 36415; 59025; 59409; 84112; 85025; 86780; 86850; 86900; 86901; 94762; J2371; J2405; J2590; J2795; J3010; J7120; A9270